=== PATIENT | female | born 1950 ===

== ENCOUNTER 2021-05-01 10:30 | Inpatient (IN) | payer OTHER ==
[~2021-05-01] VITALS: Ht 154.9 cm; Wt 56.7 kg
[2021-05-11] MEDS ORDERED: ULTRACET PO (08:53)
[2021-05-11] MEDS ORDERED: OMEPRAZOLE20 MG PO (08:53)
== END 2021-05-11 13:22 | disposition home or self-care (01) | DRG 330 ==
LOC: SURH 05-08 07:00 → O/R 05-08 07:00 → SURH 05-08 10:30
PROVIDERS: ADMIT Surgery; ATTEND Surgery
PROC: 0DTP4ZZ Resection of Rectum, Percutaneous Endoscopic Approach (ICD-10-PCS; 2021-05-08)
PROC: 0DNW4ZZ Release Peritoneum, Percutaneous Endoscopic Approach (ICD-10-PCS; 2021-05-08)
PROC: 0DSM4ZZ Reposition Descending Colon, Percutaneous Endoscopic Approach (ICD-10-PCS; 2021-05-08)
PROC: 0DJD8ZZ Inspection of Lower Intestinal Tract, Via Natural or Artificial Opening Endoscopic (ICD-10-PCS; 2021-05-08)
PROC: 0DBN4ZZ Excision of Sigmoid Colon, Percutaneous Endoscopic Approach (ICD-10-PCS; principal; 2021-05-08 07:00)
DX: Z43.3 Encounter for attention to colostomy (principal); K57.32 Diverticulitis of large intestine without perforation or abscess without bleeding; K66.0 Peritoneal adhesions (postprocedural) (postinfection); K62.4 Stenosis of anus and rectum